=== PATIENT | male | born 1960 | race Caucasian/White ===

== ENCOUNTER 2023-12-20 09:10 | Emergency (ER) | payer MEDICARE, SELFPAY ==
--- NOTE | ~2023-12-20 | XR_ITS ---
EXAMINATION: XR hip RT 2V w AP pelvis DATE: 12/20/2023 09:46 INDICATION: Right hip pain TECHNIQUE: Anteroposterior and frog-leg lateral views of the right hip were obtained. COMPARISON: None. FINDINGS: Bone alignment is normal. No fracture or suspected avascular necrosis. Right hip joint space appears relatively preserved. Mild osteoarthritis at the bilateral sacroiliac joints. IMPRESSION: 1. Mild bilateral sacroiliac osteoarthritis with unremarkable right hip. Reviewed, dictated and finalized at location A.
[2023-12-20 09:16] VITALS: BP 179/91; PULSE 91; RESP 16; TEMP 36.9; O2SAT 100
--- NOTE | 2023-12-20 09:32 | ED.LOWEXIN ---
HPI - Extremity Injury (Lower) General Chief Complaint: Extremity Injury, Lower Stated Complaint: R hip pain Time Seen by Provider: 12/20/23 09:15 History of Present Illness HPI Narrative: patient over last 2 days has been having severe pain to his right hip, to the point where he is having trouble walking, has never had symptoms like this before, no swelling to his leg, no recent trauma or injuries, denies any heavy lifting or twisting movements. Related Data Allergies Allergy/AdvReac Type Severity Reaction Status Date / Time No Known Allergies Allergy Verified 12/20/23 09:12 Review of Systems Review of Systems: All systems reviewed & are unremarkable except as noted in HPI and below Exam Narrative: EXAMINATION OF ORGAN SYSTEMS/BODY AREAS: Constitutional: Vital signs per nursing GENERAL:[No acute distress, non-toxic appearing.] HEAD: Normal with no signs of head trauma. EYES: EOMI, conjunctiva normal ENT: Hearing grossly intact LUNGS: Nonlabored breathing. HEART: [Regular rate and rhythm] ABD: [Soft], [nontender to palpation] EXT: Normal range of motion, painless; no pinpoint tenderness on exam SKIN: [No rashes or lesions.] NEURO: [Alert and oriented x 3. No gross focal sensory or strength deficits.] PSYCH: Normal affect Course Vital Signs Vital signs: Vital Signs Temperature 98.5 F 12/20/23 09:16 Pulse Rate 91 12/20/23 09:16 Respiratory Rate 16 12/20/23 09:16 Blood Pressure 179/91 H 12/20/23 09:16 Pulse Oximetry 100 12/20/23 09:16 Oxygen Delivery Room Air 12/20/23 09:16 Temperature 98.5 F 12/20/23 09:16 Pulse Rate 91 12/20/23 09:16 Respiratory Rate 16 12/20/23 09:16 Blood Pressure 179/91 H 12/20/23 09:16 Pulse Oximetry 100 12/20/23 09:16 Oxygen Delivery Room Air 12/20/23 09:16 MDM - Extremity Injury (Lower) MDM Narrative Medical decision making narrative: 63-year-old male presenting with atraumatic right hip pain, he appears uncomfortable but otherwise has painless range of motion and no overlying skin changes, x-ray obtained does not show any acute abnormality other than arthritis, I will tentatively treat him with steroid course, pain medication, with follow-up to Orthopedics, I have discussed findings with the patient and the plan with return precautions and he is agreeable to that. Discharge Plan Discharge Clinical Impression: Acute right hip pain Patient Disposition: Home, Self-Care Condition: Stable Instructions: Antibiotic Form, Hip Pain (ED) Additional Instructions: Please follow-up with orthopedic surgeon. You can come back to the emergency room for any worsening symptoms. Take the medications as prescribed Prescriptions: New prednisone 20 mg tablet 40 mg PO DAILY 4 Days Qty: 8 0RF acetaminophen [Tylenol Extra Strength] 500 mg tablet 1,000 mg PO Q6H PRN (Reason: pain) Qty: 50 0RF methocarbamol 750 mg tablet 750 mg PO TID PRN (Reason: muscle spasm) Qty: 30 0RF lidocaine 5 % adhesive patch,medicated 1 patch topical DAILY Qty: 15 0RF Rx Instructions: leave on most painful area for up to 12 hrs Follow-up/Referrals: Dejan Pardo MD [Physician] - 2 Days UNKNOWN,DOCTOR [Primary Care Provider] -
[2023-12-20] MEDS: predniSONE 20 MG TABLET 40 MG PO (10:27)
[2023-12-20] MEDS: KETOROLAC 30 MG/ML VIAL (*BKC) 10 MG IM (10:27)
== END 2023-12-20 10:35 | disposition home or self-care (01) ==
PROVIDERS: Emergency Provider Emergency Medicine
DX: M25.551 Pain in right hip (principal)
CPT/HCPCS: 73502; 96372; 99283; J1885; J7512

== ENCOUNTER 2023-12-29 08:40 | Outpatient (CLI) | payer MEDICARE, SELFPAY ==
--- NOTE | ~2023-12-29 | MR_ITS ---
EXAMINATION: MR lumbar spine wo con DATE: 12/29/2023 09:09 INDICATION: Radiculopathy with low back and right hip pain TECHNIQUE: Magnetic resonance imaging (MRI) of the lumbar spine was performed without intravenous con trast. Sequences included sagittal T2-weighted FSE, sagittal T2-weighted FS FSE, sagittal T1-weighted FSE, and axial T2-weighted FSE. COMPARISON: None FINDINGS: A degree lumbar levocurvature. Sagittal alignment is normal. Vertebral body heights are normal. Norm al marrow signal. Mild right side predominant disc height loss at L1-L2 through L4-L5 and mild to mod erate left-sided predominant disc height loss at L5-S1. The conus medullaris terminates at L2-L3. The re is normal signal in the caudal spinal cord. There are bilateral T2 hyperintense renal cysts the la rgest partially visualized but measuring at least 3.8 cm in the right kidney. Paravertebral soft tiss ues are otherwise unremarkable. The following disc levels are specifically discussed: T12-L1: The disc does not extend beyond the endplate margin. There is mild right and minimal left fac et joint osteoarthritis. There is no neural foraminal stenosis. There is no central canal stenosis. L1-L2: Disc is mildly bulging. There is minimal bilateral facet joint osteoarthritis. There is no mati ral foraminal stenosis. There is mild central canal stenosis. L2-L3: Disc is mildly bulging. There is minimal bilateral facet joint osteoarthritis. There is mild b ilateral neural foraminal stenosis. There is mild central canal stenosis. L3-L4: Disc is mildly bulging. There is mild bilateral facet joint osteoarthritis. There is mild bila teral neural foraminal stenosis. There is mild central canal stenosis. L4-L5: Disc is moderately bulging with superimposed right foraminal zone annular fissure and large di sc extrusion which along with the exiting right L4 nerve root from which is difficult to distinguish occupies the majority of the neural foramen. There is mild left and moderate right facet joint osteoa rthritis. There is mild to moderate left and moderate right neural foraminal stenosis. There is mild central canal stenosis. L5-S1: Disc is mildly bulging with annular fissure. There is old right and mild to moderate left face t joint osteoarthritis. There is mild right and mild to moderate left neural foraminal stenosis. Ther e is normal central canal stenosis. IMPRESSION: 1. Mild to moderate lower lumbar predominant spondylosis most notable for a right foraminal annular f issure and disc extrusion at L4-L5 which along with the exiting right L4 nerve root fills the neural foramen. Reviewed, dictated and finalized at location B. IMPRESSION: 1. Mild to moderate lower lumbar predominant spondylosis most notable for a rig ht foraminal annular fissure and disc extrusion at L4-L5 which along with the e xiting right L4 nerve root fills the neural foramen.
== END 2023-12-29 08:41 | disposition home or self-care (01) ==
LOC: MICIMG 08:41
PROVIDERS: PCP Orthopaedic Surgery; Visit Provider Orthopaedic Surgery
DX: M47.26 Other spondylosis with radiculopathy, lumbar region (principal)
CPT/HCPCS: 72148